=== PATIENT | female | born 1955 | race Caucasian/White ===

== ENCOUNTER 2022-03-31 02:17 | Outpatient (CLI) | payer OTHER, SELFPAY ==
[2022-03-20 15:16] VITALS: BMI 27.8
--- NOTE | 2022-03-20 15:16 | PC.NURSE ---
Pre Radiology instructions Report to the Outpatient Waiting Room, entrance under the green pavilion located off [facility], at time 0900 on date 03/31/22. Procedure Time: 1100. One visitor will be allowed to accompany the patient into the hospital. The visitor will be instructed to remain with patient at all times or leave the building. We will allow the visitor to come back to the postoperative area when patient is ready. You and your visitor will be asked a series of questions to screen for COVID 19 for your protection. A mask is required within the hospital. Patients are to have no food or drink 6 hours prior to procedure time Driving will be restricted after the procedure, you must have a person to drive you home. Labs will be drawn in preop area and once reviewed, you will be taken to radiology area for procedure. When the procedure is completed, you will be taken to outpatient where you will be monitored for several hours. You may have one visitor in this area. Other than holding anti-coagulants, patient may take other medication(s) as scheduled. Prior to your appointment date patients are instructed to hold anti-coagulants after discussing with ordering provider to stop. If unable to discontinue anti-coagulants please notify radiologist. No aspirin or warfarin (Coumadin) for 7 days prior to the procedure. No clopidogrel (Plavix), ticagrelor (Brilinta), prasugrel (Effient) or dabigatran (Pradaxa) for 5 days prior to the procedure. No rivaroxaban (Xarelto), apixaban (Eliquis), dipyridamole (Aggrenox or Persantine) or cilostazol (Pletal) for 2 days prior to the procedure. Medications to discontinue per physician: N/A Date to take last dose: N/A Please leave all valuables, including medications, at home the day of procedure. The hospital will not accept responsibility for valuables. Wear comfortable, loose fitting clothing. Follow any additional instructions given to you from ordering provider. Telephone instructions given to CHARLES HOLLAND and asked if any additional questions and then verbalized understanding. Patient advised to call scheduling provider office or registration scheduling [phone] if any additional questions.
[2022-03-31] VITALS (10 sets, daily range): BP systolic 102–144; BP diastolic 50–99; PULSE 60–91; RESP 16–18; TEMP 36.8; O2SAT 96–98
--- NOTE | ~2022-03-31 | CT_ITS ---
EXAMINATION: CT biopsy lung w/imaging DATE: 03/31/2022 11:32 INDICATION: Right lung mass TECHNIQUE: The procedure including the risks and benefits was discussed with the patient. Risks discu ssed included infection, approximately 1/20 risk of symptomatic hemorrhage beyond mild hemoptysis, ap proximately 1/3 risk of pneumothorax, and approximately 1/10 risk of pneumothorax severe enough to wa rrant chest tube placement. The patient understood the risks and agreed to proceed. The patient was p laced prone. The skin overlying the posterior right hemithorax was prepped and draped in sterile fas hion. Anesthetic was administered with 1% lidocaine subcutaneously. A 19 gauge outer needle was adv anced under CT guidance to the lesion of interest. A 20 gauge core biopsy needle was then used to obt ain 4 core biopsy specimens. The needle was removed and the entry site was cleaned and dressed. Ther e were no immediate complications. The dose-length product was 146.47 mGy-cm. FINDINGS: CT images demonstrate the outer needle tip adjacent to 3.7 x 2.8 cm spiculated right lower lobe mass. IMPRESSION: 1. Successful CT-guided biopsy of 3.7 x 2.8 cm spiculated right lower lobe mass. Reviewed, dictated and finalized at location A. IMPRESSION: 1. Successful CT-guided biopsy of 3.7 x 2.8 cm spiculated right lower lobe mass .
--- NOTE | ~2022-03-31 | XR_ITS ---
XR chest 1V 03/31/2022 11:29 Indication: Post image guided lung biopsy Procedure: AP view of the chest Comparison: 03/31/2022 Findings: There are bilateral lung masses in the right lower lung and left perihilar location. There are coarse interstitial changes bilaterally, possibly chronic interstitial fibrosis. No acute osseous abnormality. No pneumothorax identified. Impression: 1: No pneumothorax identified post biopsy. 2: Bilateral lung masses, suspicious for metastatic disease. Reviewed, dictated and finalized at location A. Impression: 1: No pneumothorax identified post biopsy. 2: Bilateral lung masses, suspicious for metastatic disease.
--- NOTE | ~2022-03-31 | XR_ITS ---
XR chest 1V portable 03/31/2022 12:26 Indication: Post image guided biopsy. Evaluate for pneumothorax. Procedure: AP portable chest Comparison: 03/31/2022 Findings: No pneumothorax identified post biopsy. Bilateral lung masses are identified, largest in th e right lung base, suspicious for metastatic disease. No acute osseous abnormality. No pleural effusi on. No acute osseous abnormality. Impression: 1: No pneumothorax identified post biopsy. 2: Bilateral lung masses, suspicious for metastatic disease. Reviewed, dictated and finalized at location A. Impression: 1: No pneumothorax identified post biopsy. 2: Bilateral lung masses, suspicious for metastatic disease.
--- NOTE | ~2022-03-31 | XR_ITS ---
EXAMINATION: XR chest 1V portable DATE: 03/31/2022 14:23 INDICATION: Status post percutaneous right lung biopsy TECHNIQUE: frontal view of the chest was obtained. COMPARISON: Chest radiograph dated 03/31/2022 at 12:[address] studies dated 03/31/2022 and 01/24/2022 FINDINGS: Again seen are masslike opacities in the bilateral mid to lower lung zones suspicious for metastatic disease. Unchanged fine reticular pattern in the lateral mid and lower lung zones which appears to co rrespond to chronic peripheral irregular septal line thickening on prior CT studies most likely chron ic interstitial lung disease although differential would include lymphangitic carcinomatosis. No pleu ral effusion or pneumothorax. The cardiomediastinal silhouette is normal. IMPRESSION: 1. No pneumothorax or other acute cardiopulmonary disease post percutaneous biopsy of a right lower l obe mass which along with a similar smaller mass in the left lower lobe are concerning for primary br onchogenic carcinoma. Reviewed, dictated and finalized at location A. IMPRESSION: 1. No pneumothorax or other acute cardiopulmonary disease post percutaneous bio psy of a right lower lobe mass which along with a similar smaller mass in the l eft lower lobe are concerning for primary bronchogenic carcinoma.
[2022-03-31 09:29] LABS: Mean Platelet Volume 10.1 fl (7.4-10.4); Platelet Count Result 235 k/mm3 (150-375)
[2022-03-31 09:44] LABS: INR 1.1; Prothrombin Time 13.3 Seconds (11.1-14.7)
== END 2022-03-31 15:00 | disposition home or self-care (01) ==
PROVIDERS: PCP Internal Medicine Infectious Disease; Referring Provider Internal Medicine Pulmonary Disease; Visit Provider Radiology Diagnostic Radiology
PROC: BB24ZZZ Computerized Tomography (CT Scan) of Bilateral Lungs (ICD-10-PCS; CPT 32408; principal; 2022-03-31 11:00)
DX: R91.8 Other nonspecific abnormal finding of lung field (principal); C34.91 Malignant neoplasm of unspecified part of right bronchus or lung
CPT/HCPCS: 32408; 36415; 71045; 85049; 85610; 88305; 88342